=== PATIENT | female | born 1990 | race Caucasian/White ===

== ENCOUNTER 2017-09-05 11:51 | Emergency (ER) | END 2017-09-05 15:29 | disposition home or self-care (01) ==

== ENCOUNTER 2017-11-11 19:11 | Emergency (ER) | END 2017-11-11 23:19 | disposition home or self-care (01) ==

== ENCOUNTER 2018-01-25 00:13 | Outpatient (CLI) | END 2018-01-25 04:41 | disposition home or self-care (01) ==